=== PATIENT | female | born 1930 | race Caucasian/White ===

== ENCOUNTER 2018-07-23 15:51 | Inpatient (IN) | payer MEDICARE, OTHER ==
[~2018-07-23] VITALS: Ht 157.5 cm; Wt 54.4 kg
--- NOTE | 2018-07-23 16:10 | NUR ---
.Patient arrived via ambulance from [facility].Patient appears obtunded,non verbally responsive.Per ambulance report :this is patient base line.Respiration unlabored.O2 at 15l via non reabreather mask.Saturation 92%.SR on monitor.Waiting to be seen by .
[2018-07-23] MEDS ORDERED: IV NORMAL SALINE 1000 ML BAG IV ONE (16:15)
[2018-07-23] MEDS ORDERED: ACET-2154 PO (16:33)
[2018-07-23] MEDS ORDERED: DOCU100C36 PO (16:33)
[2018-07-23] MEDS ORDERED: TYLENOL PR (16:33)
[2018-07-23] MEDS ORDERED: MELA3TAB PO (16:33)
[2018-07-23] MEDS ORDERED: BISA10SU61 RC (16:33)
[2018-07-23] MEDS ORDERED: FURO-152 PO (16:33)
[2018-07-23] MEDS ORDERED: ASPI81TA31 PO (16:33)
[2018-07-23] MEDS ORDERED: LOSA100T15 PO (16:33)
[2018-07-23] MEDS ORDERED: MAGN400O6 PO (16:33)
[2018-07-23] MEDS ORDERED: LEVE500T20 PO (16:33)
[2018-07-23] MEDS ORDERED: CLON0.1T PO (16:33)
[2018-07-23] MEDS ORDERED: DICLOFENAC SODIUM 1% TOP (16:33)
[2018-07-23] MEDS ORDERED: HYDR-3326 PO (16:33)
[2018-07-23] MEDS ORDERED: ATROPINE SULFATE 1% SL (16:33)
[2018-07-23] MEDS ORDERED: OMEP20CA10 PO (16:33)
[2018-07-23 17:03] LABS: BASOPHILS # (AUTO) 0.1 K/uL (0.0-8.0); BASOPHILS % (AUTO) 0.3 % (0.0-2.0); EOSINOPHILS % (AUTO) 0.1 % (0.0-7.0); HEMATOCRIT 42.9 % (31.2-41.9); LYMPHOCYTES # (AUTO) 1.3 K/uL (20.0-40.0); LYMPHOCYTES % (AUTO) 4.1 % (20.5-51.5); MEAN CORPUSCULAR HEMOGLOBIN 30.3 uug (24.7-32.8); MEAN CORPUSCULAR HGB CONC 33 g/dL (32.3-35.6); MONOCYTES # (AUTO) 1.7 K/uL (2.0-10.0); MONOCYTES % (AUTO) 5.5 % (0.0-11.0); NEUTROPHILS # (AUTO) 28.5 K/uL (1.8-8.9); PLATELET COUNT (AUTO) 624 K/uL (179-408); RED BLOOD CELL COUNT(AUTO) 4.62 MIL/uL (3.63-4.92)
[2018-07-23 17:10] LABS: WHITE BLOOD COUNT (AUTO) 31.6 K/uL (3.8-11.8)
[2018-07-23 17:27] LABS: ALANINE AMINOTRANSFERASE 19 U/L (14-59); ALKALINE PHOSPHATASE 155 U/L (50-136); ASPARTATE AMINOTRANSFERASE 31 U/L (15-37); BILIRUBIN,DIRECT 0.2 mg/dL (0.0-0.2); BILIRUBIN,TOTAL 0.5 mg/dL (0.2-1.0); CARBON DIOXIDE 28 mmol/L (21-32); CHLORIDE 115 mmol/L (98-107); CREATININE 1.9 mg/dL (0.6-1.3); GLUCOSE 121 mg/dL (74-106); POTASSIUM 2.9 mmol/L (3.5-5.1); TOTAL PROTEIN, SERUM 7.8 g/dL (6.4-8.2); UREA NITROGEN, BLOOD 53 mg/dL (7-18)
[2018-07-23 17:45] LABS: BAND % (MANUAL) 3 % (0-10); LYMPHOCYTES % (MANUAL) 5 % (20-40); MONOCYTES % (MANUAL) 7 % (2-10); NEUTROPHILS % (MANUAL) 85 % (42-75)
[2018-07-23] MEDS ORDERED: FUROSEMIDE 40 MG/4 ML VIAL ONE (17:45)
[2018-07-23] MEDS ORDERED: VANCOMYCIN IV 1,000 MG in IV DEXTROSE 5% 250 ML IV ONE (17:45)
[2018-07-23] MEDS ORDERED: FUROSEMIDE 20 MG/2 ML VIAL IV ONE (17:45)
[2018-07-23] MEDS ORDERED: MORPHINE SULFATE 2 MG/1 ML DISP.SYRIN IV ONE (17:45)
[2018-07-23] MEDS ORDERED: VANCOMYCIN IV 200 ML ONE (17:46)
[2018-07-23] MEDS ORDERED: MORPHINE SULFATE 2 MG/1 ML DISP.SYRIN ONE (18:07)
[2018-07-23 18:11] LABS: *BILIRUBIN,URIN 2+ (NEGATIVE); *BLOOD, URINE NEGATIVE (NEGATIVE); *CLARITY,URINE SLIGHTLY CLOUDY (CLEAR); *KETONES,URINE TRACE (NEGATIVE); *PROTEIN,URINE NEGATIVE (NEGATIVE); *UROBILINOGEN,URINE 0.2 E.U./dl (NORMAL); LEUKOCYTE ESTERASE ,URINE 1+ (NEGATIVE); NITRITE, URINE NEGATIVE (NEGATIVE); UGLUCOSE NEGATIVE (NEGATIVE)
[2018-07-23 18:21] LABS: *COLOR,URINE DARK YELLOW (YELLOW)
[2018-07-23 18:22] LABS: BACTERIA,URINE MANY /HPF (NONE SEEN); SQUAMOUS EPITHELIAL CELL,UR MODERATE /HPF (NONE SEEN)
[2018-07-23 18:23] LABS: MUCUS,URINE MODERATE /LPF (0-FEW)
--- NOTE | 2018-07-23 18:25 | NUR ---
Report given to TARIQ Fink.
[2018-07-23 18:59] VITALS: BP 163/67
[2018-07-23] MEDS ORDERED: MAGNESIUM HYDROXIDE 30 ML LIQUID UDC PO PRN (19:15)
[2018-07-23] MEDS ORDERED: ONDANSETRON 4 MG/2 ML VIAL IV PRN (19:15)
[2018-07-23] MEDS ORDERED: ZOLPIDEM 5 MG TABLET PO PRN (19:15)
[2018-07-23] MEDS ORDERED: HYDROCODONE/APAP 5-325MG TABLET PO PRN (19:15)
[2018-07-23] MEDS ORDERED: ACETAMINOPHEN 325 MG TABLET PO PRN (19:15)
[2018-07-23] MEDS ORDERED: Z GUARD REMEDY PASTE 57 GM TUBE TOP PRN (19:15)
--- NOTE | 2018-07-23 19:33 | NUR ---
PATIENT ARRIVED INTO UNIT AT 640 PM. VERY UNSTABLE. PATIENT IS DNR/DNI. ELECTROLYTES ABNORMAL. PRESENTS WITH RIGHT SHOULDER DISLOCATION, WELL WHAT LOOKS LIKE RIGHT HIP DISLOCATION. RIGHT HIP LOOKING A LIKE SHORTER THAN RIGHT. ON SIMPLE MASK 8L SATURATING AT 96%. VITAL SIGNS UNSTABLE. LOW GRADE FEVER. COCCYX WOUND. LOOKS LIKE OLD SCAR, OR A SKIN GRAFT. REPORT GIVEN TO FACILITY TECHNICIAN NURSE.
[2018-07-23 19:53] LABS: MAGNESIUM 2.2 mg/dL (1.8-2.4); PHOSPHOROUS 3.7 mg/dL (2.5-4.9)
[2018-07-23] MEDS ORDERED: ASPIRIN 300 MG RECTAL SUPP RC ONE (20:00)
--- NOTE | 2018-07-23 20:00 | NUR ---
PATIENT AWAKE IN BED, NON VERBAL BUT RESPONSIVE TO VERBAL AND TACTILE STIMULI. NO FACIAL GRIMACING OR SIGNS OF DISTRESS AT THIS TIME. PATIENT ON TELE WITH SR AT 84. SAFETY MEASURES IN PLACE, WILL CONTINUE TO MONITOR PATIENT
[2018-07-23] MEDS ORDERED: DEXTROSE 50% 50 ML DISP.SYRIN IV PRN (20:15)
[2018-07-23] MEDS ORDERED: INSULIN REGULAR, HUMAN 300 UNITS/3 ML VIAL SQ PRN (20:15)
[2018-07-23] MEDS ORDERED: INSULIN REGULAR, HUMAN 300 UNIT/3 ML VIAL SQ PRN (20:15)
--- NOTE | 2018-07-23 20:17 | NUR ---
CLINICAL PHARMACY NOTE:VANCOMYCIN DOSING Request for vancomycin dosing on 87 y/o female 5'2" 120lbs empiric therapy(leukocytos Temp 99.2 BUN 53 SCr 1.9 WBC 31.6 Bands 3 also on Azactam Received vancomycin 1gm in ER. Ordered random vancomycin level for tomorrow. Will dose by fall off levels due to poor renal function
[2018-07-23 20:18] VITALS: BP 115/77
[2018-07-23] MEDS ORDERED: DICLOFENAC SODIUM TOP SCH (21:15)
[2018-07-23 21:20] LABS: ABG BASE EXCESS 4.3 mmol/L; ABG HCO3 30.8 mmol/L; ABG PCO2 53.8 mmHg (35.0-45.0); ABG PH 7.375 (7.350-7.450); ABG PO2 48.7 mmHg (75.0-100.0); ABG SITE LEFT BRACHIAL; ABG TOTAL HEMOGLOBIN 13.7 G/dL (12.0-16.0); MetHb 0.3 % (0.0-1.5); O2Hb 83.3 % (94.0-97.0)
[2018-07-23] MEDS: LEVETIRACETAM IV 500 MG in IV DEXTROSE 5% 100 ML IV SCH (21:40)
[2018-07-23] MEDS: HEPARIN SODIUM,PORCINE 5,000 UNITS/ML VIAL SQ SCH (21:42)
[2018-07-23] MEDS: BLOOD SUGAR DIAGNOSTIC 1 EACH STRIP VI SCH (21:52)
[2018-07-23] MEDS ORDERED: AZTREONAM 2 G in IV NORMAL SALINE 100 ML IV SCH (22:00)
[2018-07-23] MEDS: AZTREONAM 1 G in IV NORMAL SALINE 50 ML IV SCH (22:11)
[2018-07-23] MEDS: POTASSIUM CHLORIDE 50 ML IV SCH ×2 (22:45→23:47)
[2018-07-24] MEDS: MORPHINE SULFATE 2 MG/1 ML DISP.SYRIN IV PRN ×2 (00:11→05:08)
[2018-07-24 00:42] VITALS: BP 157/81
[2018-07-24] MEDS: POTASSIUM CHLORIDE 50 ML IV SCH ×2 (00:51→01:52)
[2018-07-24 04:00] VITALS: BP 139/78
[2018-07-24] MEDS: AZTREONAM 1 G in IV NORMAL SALINE 50 ML IV SCH ×3 (05:07→22:42)
[2018-07-24 05:17] LABS: BASOPHILS % (AUTO) 0.1 % (0.0-2.0); HEMATOCRIT 37.7 % (31.2-41.9); HEMOGLOBIN 12.8 g/dL (10.9-14.3); LYMPHOCYTES % (AUTO) 3.4 % (20.5-51.5); MEAN CORPUSCULAR HGB CONC 34 g/dL (32.3-35.6); MEAN CORPUSCULAR VOLUME 91.3 fL (75.5-95.3); MONOCYTES # (AUTO) 1.6 K/uL (2.0-10.0); MONOCYTES % (AUTO) 5.4 % (0.0-11.0); NEUTROPHILS # (AUTO) 26.5 K/uL (1.8-8.9); NEUTROPHILS % (AUTO) 91.1 % (38.5-71.5); PLATELET COUNT (AUTO) 552 K/uL (179-408); RED BLOOD CELL COUNT(AUTO) 4.13 MIL/uL (3.63-4.92); WHITE BLOOD COUNT (AUTO) 29.1 K/uL (3.8-11.8)
[2018-07-24 05:21] LABS: CARBON DIOXIDE 30 mmol/L (21-32); CHLORIDE 116 mmol/L (98-107); CHOLESTEROL 95 mg/dL (<200); CREATININE 2.1 mg/dL (0.6-1.3); GLUCOSE 125 mg/dL (74-106); HDL CHOLESTEROL 40 mg/dL (40-60); PHOSPHOROUS 3.6 mg/dL (2.5-4.9); POTASSIUM 3.9 mmol/L (3.5-5.1); TRIGLYCERIDES 104 MG/DL (30-150); UREA NITROGEN, BLOOD 61 mg/dL (7-18)
[2018-07-24 06:15] LABS: THYROID STIMULATING HORMONE 0.088 mIU/mL (0.358-3.740)
--- NOTE | 2018-07-24 06:23 | NUR ---
PATIENT IS ASLEEP, WEAK AND LETHARGIC. NO S/S OF PAIN OR ACUTE DISTRESS AT THIS TIME. PAIN MEDS GIVEN ORDERED. CONTINUES TO BE SR ON TELE. SAFETY AND COMFORT MEASURES MAINTAINED AT ALL TIMES.
[2018-07-24] MEDS: BLOOD SUGAR DIAGNOSTIC 1 EACH STRIP VI SCH ×4 (06:32→21:15)
--- NOTE | 2018-07-24 08:00 | NUR ---
PATIENT NOTED LESS SOB, ON 100% NON RE-BREATHING MASK SATURATING 99%. AM LABS CALLED TO ADRIENNE GUARDADO WITH ORDERS.
[2018-07-24] MEDS: PANTOPRAZOLE SODIUM 40 MG VIAL IV SCH (08:39)
[2018-07-24] MEDS: HEPARIN SODIUM,PORCINE 5,000 UNITS/ML VIAL SQ SCH ×2 (08:41→21:07)
[2018-07-24] MEDS: LEVETIRACETAM IV 500 MG in IV DEXTROSE 5% 100 ML IV SCH ×2 (08:42→21:06)
[2018-07-24] MEDS ORDERED: IV D5W 1000ML 1,000 ML IV PRN (09:15)
[2018-07-24] MEDS ORDERED: MINERAL OIL FLEET ENEMA 133 ML BOTTLE RC ONE (09:15)
[2018-07-24] MEDS ORDERED: IV D5 1/2 NS 1000 ML 1,000 ML IV ONE (11:00)
--- NOTE | 2018-07-24 11:00 | NUR ---
DR HERNANDEZ AND DR SALDAÑA CAME FOR CONSULT SEE NOTES. STARTED ON D5 1/2 NS AT 75 MLS/HR. PATIENT IS HEAVILY IMPACTED PER CT ABDOMEN RESULTS MINERAL OIL ENEMA AND DULCOLAX SUPP ADMINISTERED
[2018-07-24 11:30] VITALS: BP 122/68
[2018-07-24] MEDS: ACETAMINOPHEN 650 MG SUPP.RECT RC PRN ×2 (11:45→21:06)
[2018-07-24] MEDS: BISACODYL 10 MG SUPP.RECT RC PRN (11:45)
--- NOTE | 2018-07-24 11:53 | NUR ---
CLINICAL PHARMACY NOTE:VANCOMYCIN DOSING To continue vancomycin dosing on 87 y/o female 5'2" 120lbs empiric therapy(leukocytos Temp 98.4 BUN 61 SCr 2.1 (ARF) WBC 29.1 also on Azactam random: pending today at 1500 Received vancomycin 1gm in ER 07/23 1745. Next random pending today at 1500. Will check level at that time and re-dose as needed. Will follow Addendum: 07/24/18 at 1719 by JOSÉ MIGUEL GARCIA ADM RANDOM LEVEL AT 1550 10.8, DOSED ANOTEHR 1GM DUE FOR 1800. WILL CHECK SCR IN AM AND RE-ORDER NEXT RANDOM BASED ON RENAL FXN. WILL FOLLOW
--- NOTE | 2018-07-24 12:12 | NUR ---
DR PORRAS CALLED BACKED AND MADE AWARE OF 3-5 MINS 2X EPISODES OF SVT NO NEW ORDERS BT WILL FOLLOW-UP PATIENT. CONTINUE WITH [facility] OBSERVATION. 15% O2 ON NON-REBREATHING MASK MAINTAINED SATURATING 97%
--- NOTE | 2018-07-24 16:00 | NUR ---
DR PORRAS IN AND EXAMINED PATIENT SEE NOTES
[2018-07-24 16:06] VITALS: BP 127/70
[2018-07-24] MEDS ORDERED: VANCOMYCIN IV 1 G in PREMIXED 0 EACH IV ONE (18:00)
[2018-07-24 20:00] VITALS: BP 142/63
[2018-07-25] VITALS: BP 121/56
--- NOTE | 2018-07-25 00:01 | NUR ---
Digitally disimpacted / moderate amount brown formed stool.
[2018-07-25 04:00] VITALS: BP 114/56
[2018-07-25] MEDS: MORPHINE SULFATE 2 MG/1 ML DISP.SYRIN IV PRN ×2 (05:03→13:21)
[2018-07-25] MEDS: AZTREONAM 1 G in IV NORMAL SALINE 50 ML IV SCH ×3 (05:05→22:00)
[2018-07-25 06:23] LABS: BASOPHILS % (AUTO) 0.2 % (0.0-2.0); EOSINOPHILS # (AUTO) 0.3 K/uL (0.0-0.7); EOSINOPHILS % (AUTO) 1.1 % (0.0-7.0); HEMATOCRIT 36.3 % (31.2-41.9); HEMOGLOBIN 12.4 g/dL (10.9-14.3); MEAN CORPUSCULAR HGB CONC 34 g/dL (32.3-35.6); MEAN CORPUSCULAR VOLUME 91.1 fL (75.5-95.3); MONOCYTES % (AUTO) 4.2 % (0.0-11.0); NEUTROPHILS # (AUTO) 22.4 K/uL (1.8-8.9); NEUTROPHILS % (AUTO) 90.5 % (38.5-71.5); PLATELET COUNT (AUTO) 499 K/uL (179-408); RED BLOOD CELL COUNT(AUTO) 3.99 MIL/uL (3.63-4.92); WHITE BLOOD COUNT (AUTO) 24.7 K/uL (3.8-11.8)
[2018-07-25 06:58] LABS: BAND % (MANUAL) 4 % (0-10); LYMPHOCYTES % (MANUAL) 5 % (20-40); NEUTROPHILS % (MANUAL) 87 % (42-75)
[2018-07-25 07:00] LABS: MONOCYTES % (MANUAL) 4 % (2-10)
[2018-07-25 07:03] LABS: CARBON DIOXIDE 28 mmol/L (21-32); CHLORIDE 116 mmol/L (98-107); CREATININE 2.2 mg/dL (0.6-1.3); GLUCOSE 107 mg/dL (74-106); PHOSPHOROUS 3.1 mg/dL (2.5-4.9); POTASSIUM 3.5 mmol/L (3.5-5.1); UREA NITROGEN, BLOOD 68 mg/dL (7-18)
[2018-07-25] MEDS: BLOOD SUGAR DIAGNOSTIC 1 EACH STRIP VI SCH ×4 (07:31→20:51)
[2018-07-25 07:51] VITALS: BP 140/66
--- NOTE | 2018-07-25 08:00 | NUR ---
pt obtunded and only responds to tactile stimuli. Pt's on continous pulse ox sat @ 97% on Non rebreather mask. SNR @70's on tele. F/c draining dark yellow urine. Pt diminished breath sounds on lower lobes. Sacrum redness noted. Notified ROOF FIXER re: to elevate right arm and be mind full the right humerus dislocation. Pt agreeable with plan of care. Call light is within reach. Addendum: 07/25/18 at 1528 by TOMASZ CRYSTAL RN ROOF FIXER agreeable with plan.
[2018-07-25] MEDS: PANTOPRAZOLE SODIUM 40 MG VIAL IV SCH (08:27)
[2018-07-25] MEDS: ASPIRIN 300 MG RECTAL SUPP RC SCH (08:27)
[2018-07-25] MEDS: LEVETIRACETAM IV 500 MG in IV DEXTROSE 5% 100 ML IV SCH ×2 (08:27→20:40)
[2018-07-25] MEDS: HEPARIN SODIUM,PORCINE 5,000 UNITS/ML VIAL SQ SCH ×2 (08:30→20:43)
--- NOTE | 2018-07-25 09:18 | NUR ---
CLINICAL PHARMACY NOTE:VANCOMYCIN DOSING S: To continue vancomycin dosing on 87 y/o female for empiric therapy(leukocytosis, Sepsis) O: Temp 98.4 BUN 68 SCr 2.2 (ARF) WBC 24.7 also on Azactam random: pending today at 1700 ht 157.4 cm wt 54.4 kg Plan Received vancomycin 1gm IVPB on 07/24 at 1840. Next random pending today at 1700. Will check level at that time and re-dose as needed. Will follow Addendum: 07/25/18 at 1831 by BRANDYN RAUSCH RANDOM VANCOMYCIN LEVEL 20.3. NO VANCOMYCIN TODAY. REPEAT RANDOM LEVEL IN AM
--- NOTE | 2018-07-25 10:00 | NUR ---
Attempted to taper o2 usage of NRB mask to a simple mask @ 8 liters. Pt desaturated after 15-20 mins to 82% o2 sat. Put pt back on non rebreather as pt cannot tolerate simple mask.
[2018-07-25 11:14] VITALS: BP 137/57
--- NOTE | 2018-07-25 13:10 | NUR ---
Pt had run of atrial flutter with HR of 145 for 6mins. b/p 124/78 resp 20. 02 sat 96% on NRB mask. Pt went back to SNR after 6 mins of run. Pt is in pain - pt moaning and groaning. Used Flacc system for pain level of 7/10. Morphine Given.
[2018-07-25 15:08] VITALS: BP 141/53
[2018-07-25 15:42] LABS: *BILIRUBIN,URIN NEGATIVE (NEGATIVE); *BLOOD, URINE 2+ (NEGATIVE); *CLARITY,URINE SLIGHTLY CLOUDY (CLEAR); *COLOR,URINE YELLOW (YELLOW); *KETONES,URINE NEGATIVE (NEGATIVE); *PROTEIN,URINE NEGATIVE (NEGATIVE); LEUKOCYTE ESTERASE ,URINE 2+ (NEGATIVE); NITRITE, URINE NEGATIVE (NEGATIVE); UGLUCOSE NEGATIVE (NEGATIVE)
[2018-07-25 15:50] LABS: *CREATININE,URINE 84.6 mg/dL (30-125); *URINE TOTAL PROTEIN RANDOM 62.4 mg/dL (<150/24HR)
[2018-07-25 15:55] LABS: BACTERIA,URINE MODERATE /HPF (NONE SEEN); SQUAMOUS EPITHELIAL CELL,UR FEW /HPF (NONE SEEN)
--- NOTE | 2018-07-25 16:10 | NUR ---
Received report from [place] [facility].
[2018-07-25 20:00] VITALS: BP 104/59
--- NOTE | 2018-07-25 20:00 | NUR ---
RECEIVED PT VERBALLY NONRESPONSIVE, OPENS HER EYES TO NOXIOUS STIMULI. IVF ON R WRIST TKO RATE FOR IVPB MEDS. ON O2 OF100% NRM W/ O2 SAT OF 98%.PT. HAS A 7 MINS RUN OF SVT HR-140-156, HEATHER CHAKRABORTY CALLED & WAS UPDATED NO ORDER GIVEN. BP STABLE. REPOSITIONED W/ HOB ELEVATED.
[2018-07-25] MEDS ORDERED: IV NORMAL SALINE 250 ML IV PRN (20:45)
--- NOTE | 2018-07-25 23:00 | NUR ---
HS CARE DONE. ORAL CARE DONE. REPOSITIONED W/ HOB ELEVATED.
[2018-07-26] VITALS: BP 110/62
[2018-07-26 04:00] VITALS: BP 118/82
--- NOTE | 2018-07-26 04:30 | NUR ---
AM CARE DONE. REPOSITIONED W/ HOB ELEVATED. V/S STABLE. URINE OUTPUT IS LOW, MD AWARE.
[2018-07-26] MEDS: AZTREONAM 1 G in IV NORMAL SALINE 50 ML IV SCH ×3 (05:25→21:33)
[2018-07-26 06:24] LABS: CARBON DIOXIDE 28 mmol/L (21-32); CHLORIDE 116 mmol/L (98-107); CREATININE 2.1 mg/dL (0.6-1.3); GLUCOSE 86 mg/dL (74-106); PHOSPHOROUS 3.7 mg/dL (2.5-4.9); POTASSIUM 3.5 mmol/L (3.5-5.1); UREA NITROGEN, BLOOD 74 mg/dL (7-18)
[2018-07-26] MEDS: BLOOD SUGAR DIAGNOSTIC 1 EACH STRIP VI SCH (06:35)
[2018-07-26 06:41] LABS: BASOPHILS # (AUTO) 0.1 K/uL (0.0-8.0); BASOPHILS % (AUTO) 0.3 % (0.0-2.0); EOSINOPHILS # (AUTO) 0.3 K/uL (0.0-0.7); EOSINOPHILS % (AUTO) 1.5 % (0.0-7.0); HEMATOCRIT 36.6 % (31.2-41.9); HEMOGLOBIN 12.2 g/dL (10.9-14.3); LYMPHOCYTES # (AUTO) 0.8 K/uL (20.0-40.0); LYMPHOCYTES % (AUTO) 3.9 % (20.5-51.5); MEAN CORPUSCULAR HEMOGLOBIN 30.8 uug (24.7-32.8); MEAN CORPUSCULAR HGB CONC 33 g/dL (32.3-35.6); MEAN CORPUSCULAR VOLUME 92.3 fL (75.5-95.3); MONOCYTES % (AUTO) 5.1 % (0.0-11.0); NEUTROPHILS % (AUTO) 89.2 % (38.5-71.5); PLATELET COUNT (AUTO) 492 K/uL (179-408); RED BLOOD CELL COUNT(AUTO) 3.96 MIL/uL (3.63-4.92); WHITE BLOOD COUNT (AUTO) 20.2 K/uL (3.8-11.8)
--- NOTE | 2018-07-26 07:30 | NUR ---
report received from Laurence POTTER, 87 yr old female was admitted to [facility] for hypoxemia and NSTEMI. patient is nonverbal but moans and groans to pain especially when being repositioned. library monitor shows sinus rhythm, saline lock #22 intact, dressing changed and retaped. small amount of leak on the IV site and catheter is bent, retaped as well. bernstein catheter intact, urine scanty. right shoulder fx noted. right arm kept elevated on a pillow. repositioned to side. sacral wound noted. healing, mepilex dressing intac Addendum: 07/26/18 at 0856 by RUSS CANTU RN Amended: Links added.
[2018-07-26] MEDS: MORPHINE SULFATE 2 MG/1 ML DISP.SYRIN IV PRN ×3 (07:33→17:49)
[2018-07-26 07:37] VITALS: BP 147/72
[2018-07-26] MEDS: LEVETIRACETAM IV 500 MG in IV DEXTROSE 5% 100 ML IV SCH ×2 (08:44→21:46)
[2018-07-26] MEDS: PANTOPRAZOLE SODIUM 40 MG VIAL IV SCH (08:44)
[2018-07-26] MEDS: HEPARIN SODIUM,PORCINE 5,000 UNITS/ML VIAL SQ SCH ×2 (08:45→21:34)
[2018-07-26] MEDS: ASPIRIN 300 MG RECTAL SUPP RC SCH (08:45)
[2018-07-26] MEDS ORDERED: VANCOMYCIN IV 1 G in PREMIXED 0 EACH IV ONE (10:00)
[2018-07-26] MEDS: IV D5W 1000ML 1,000 ML IV SCH (11:34)
[2018-07-26 12:08] VITALS: BP 152/60
--- NOTE | 2018-07-26 12:42 | NUR ---
CLINICAL PHARMACY NOTE:VANCOMYCIN DOSING S: To continue vancomycin dosing on 87 y/o female for empiric therapy(leukocytosis, Sepsis) O: Temp 98 BUN 74 SCr 2.1 (ARF) WBC 20.2 also on Azactam Vancomycin random today at 0600:18.5 ht 157.4 cm wt 54.4 kg Plan Since Vancomycin random is under 20, Vancomycin 1gram x1 was given today at 1009. Will continue to dose by fall-off random level due to decreased renal function(ordered for 07/28/18 at 0600). Will follow the level for further dosing.
--- NOTE | 2018-07-26 12:44 | NUR ---
WOUND CARE CONSULT: PT PRESENTS WITH SACRAL SCARRING, PRESENT ON ADMISSION. RECOMMENDATIONS MADE FOR SKIN PROTECTION AND DISCUSSED WITH NURSING STAFF. PT ON FIRST STEP CIRRUS LOW AIRLOSS MATTRESS. ALL SKIN PROTECTION MEASURES IN PLACE. WILL SEE PRN. MD IN AGREEMENT WITH PLAN OF CARE. WILL SEE PRN. MD IN AGREEMENT WITH PLAN OF CARE.
--- NOTE | 2018-07-26 13:08 | NUR ---
nonrebreather mask dc/d. o2 mask at 10 liters applied instead pulse oximeter at the bedside. Addendum: 07/26/18 at 1308 by RUSS CANTU RN Amended: Links added.
--- NOTE | 2018-07-26 14:28 | NUR ---
medicated for generalized pain..unable to scale Addendum: 07/26/18 at 1429 by RUSS CANTU RN Amended: Links added.
[2018-07-26 16:12] VITALS: BP 126/48
[2018-07-26] MEDS: ACETAMINOPHEN 650 MG SUPP.RECT RC PRN (16:18)
[2018-07-26] MEDS: ALBUTEROL SULFATE 2.5 MG/3 ML NEBU NEB PRN (16:30)
[2018-07-26] MEDS: IPRATROPIUM BROMIDE 0.5 MG/2.5 ML NEBU NEB PRN (16:30)
--- NOTE | 2018-07-26 17:53 | NUR ---
medicated for generalized discomfort. needed to be suctioned nasotracheally and obtained large amount of yellow thick secretions Addendum: 07/26/18 at 1753 by RUSS CANTU RN Amended: Links added.
--- NOTE | 2018-07-26 18:53 | NUR ---
Pt unable to tolerate V/Q scan per neurophysiological technician. V/Q scan not done. made aware
[2018-07-26 19:54] VITALS: BP 130/60
--- NOTE | 2018-07-26 22:33 | NUR ---
with cnas help turned and reposition patient in bed .offloaded back and elevated upper and lower extremities with pillow . hob up and no respiratory distress tolerating NRM saturation 96% rr 18
[2018-07-27 00:29] VITALS: BP 133/56
[2018-07-27 05:06] VITALS: BP 121/43
[2018-07-27] MEDS: AZTREONAM 1 G in IV NORMAL SALINE 50 ML IV SCH ×3 (05:18→21:16)
[2018-07-27] MEDS: ALBUTEROL SULFATE 2.5 MG/3 ML NEBU NEB PRN (05:23)
[2018-07-27] MEDS: IPRATROPIUM BROMIDE 0.5 MG/2.5 ML NEBU NEB PRN (05:23)
--- NOTE | 2018-07-27 05:58 | NUR ---
AM CARE DONE ,CHANGED SOILED LINENS AND GOWN SKIN CARE DONE . SACRAL WOUND CLEANSE WITH NORMAL SALINE PAT DRY APPLIED HYDROGEL AND COVER WITH MEPILEX , WOUND IS HEALING .ELEVATED UPPER AND LOWER EXTREMITIES HEELS OFFLOADED .
[2018-07-27 06:44] LABS: BASOPHILS # (AUTO) 0.1 K/uL (0.0-8.0); BASOPHILS % (AUTO) 0.4 % (0.0-2.0); EOSINOPHILS # (AUTO) 0.3 K/uL (0.0-0.7); EOSINOPHILS % (AUTO) 1.6 % (0.0-7.0); HEMATOCRIT 37.5 % (31.2-41.9); HEMOGLOBIN 12.5 g/dL (10.9-14.3); LYMPHOCYTES # (AUTO) 1.7 K/uL (20.0-40.0); LYMPHOCYTES % (AUTO) 10.6 % (20.5-51.5); MEAN CORPUSCULAR HEMOGLOBIN 30.8 uug (24.7-32.8); MEAN CORPUSCULAR HGB CONC 33 g/dL (32.3-35.6); MEAN CORPUSCULAR VOLUME 92.6 fL (75.5-95.3); MONOCYTES # (AUTO) 0.9 K/uL (2.0-10.0); MONOCYTES % (AUTO) 5.9 % (0.0-11.0); NEUTROPHILS # (AUTO) 12.7 K/uL (1.8-8.9); NEUTROPHILS % (AUTO) 81.5 % (38.5-71.5); PLATELET COUNT (AUTO) 501 K/uL (179-408); RED BLOOD CELL COUNT(AUTO) 4.05 MIL/uL (3.63-4.92); WHITE BLOOD COUNT (AUTO) 15.6 K/uL (3.8-11.8)
[2018-07-27 06:56] LABS: CARBON DIOXIDE 29 mmol/L (21-32); CHLORIDE 114 mmol/L (98-107); CREATININE 2.1 mg/dL (0.6-1.3); GLUCOSE 113 mg/dL (74-106); MAGNESIUM 2.1 mg/dL (1.8-2.4); PHOSPHOROUS 3.4 mg/dL (2.5-4.9); POTASSIUM 3.1 mmol/L (3.5-5.1); UREA NITROGEN, BLOOD 70 mg/dL (7-18)
--- NOTE | 2018-07-27 07:00 | NUR ---
endorsed patient in bed on simple face mask at 10 liters . tolerating oxygen saturation 94% rr 18.
[2018-07-27] MEDS: IV D5W 1000ML 1,000 ML IV SCH (07:22)
--- NOTE | 2018-07-27 07:30 | NUR ---
NO SS OF PAIN OR DISTRESS, ON SIMPLE MASK AT 10L SATURATING 95%. MOANS ON AT TIMES, SR ON MONITOR. NPO STILL WITH D5W AT 50 MLS/HR CONTINUE WITH IV ANTIBIOTICS ORDERED. CONTINUE WITH [facility] MONITORING
[2018-07-27 07:40] VITALS: BP 140/78
[2018-07-27] MEDS: ASPIRIN 300 MG RECTAL SUPP RC SCH (08:45)
[2018-07-27] MEDS: LEVETIRACETAM IV 500 MG in IV DEXTROSE 5% 100 ML IV SCH ×2 (08:45→20:19)
[2018-07-27] MEDS: PANTOPRAZOLE SODIUM 40 MG VIAL IV SCH (08:45)
[2018-07-27] MEDS: HEPARIN SODIUM,PORCINE 5,000 UNITS/ML VIAL SQ SCH ×2 (08:46→20:18)
--- NOTE | 2018-07-27 09:58 | NUR ---
CLINICAL PHARMACY NOTE:VANCOMYCIN DOSING S: To continue vancomycin dosing on 87 y/o female for empiric therapy(leukocytosis, Sepsis) O: Temp 98 BUN 70 SCr 2.1 (ARF) WBC 15.6 also on Azactam ht 157.4 cm wt 54.4 kg Plan No dose due today.Will continue to dose by fall-off random level due to decreased renal function(ordered for 07/28/18 at 0600). Will follow the level for further dosing. Will follow up
[2018-07-27] MEDS: POTASSIUM CHLORIDE 50 ML IV SCH ×2 (10:53→12:08)
[2018-07-27 11:40] VITALS: BP 128/76
--- NOTE | 2018-07-27 12:00 | NUR ---
SEEN BY DR SALDAÑA. SEE NOTES
--- NOTE | 2018-07-27 14:19 | NUR ---
RESTING COMFORTABLY WITH HOB UP 45 DEGREES WITH 10L O2 VIA SIMPLE MASK. CONTINUE WITH [facility] OBSERVATION
[2018-07-27 15:40] VITALS: BP 139/67
--- NOTE | 2018-07-27 17:17 | NUR ---
SEEN BY DR PORRAS SEE NOTES
[2018-07-27] MEDS: IV D5W 1000ML 1,000 ML IV PRN (18:13)
--- NOTE | 2018-07-27 19:47 | NUR ---
ROUNDS MADE PATIENT IN BED RESTING TOLERATING 02 AT SIMPLE FACE MASK AT 10 LITER /MIN . HOB UP . PATIENT DOESN'T FOLLOW COMMANDS CONFUSED .NPO ON IVF D5W AT 75 ML/HR .
[2018-07-27 20:07] VITALS: BP 140/52
[2018-07-28 00:32] VITALS: BP 130/75
[2018-07-28 04:37] VITALS: BP 171/81
[2018-07-28] MEDS: AZTREONAM 1 G in IV NORMAL SALINE 50 ML IV SCH ×3 (05:17→21:01)
--- NOTE | 2018-07-28 05:44 | NUR ---
AM CARE DONE .SACRAL HEALING WOUND CLEANSE WITH NORMAL SALINE PAT DRY APPLIED HYDROGEL COVER WITH MEPILEX,CHANGED SOILED LINENS AND GOWN . ELEVATED UPPER AND LOWER EXTREMITIES WITH PILLOWS .TOLERATING SIMPLE FACE MASK AT 10 L /MIN SATURATING OK 96%.
[2018-07-28 07:18] VITALS: BP 156/83
[2018-07-28 07:19] LABS: BASOPHILS # (AUTO) 0.1 K/uL (0.0-8.0); BASOPHILS % (AUTO) 0.4 % (0.0-2.0); EOSINOPHILS # (AUTO) 0.4 K/uL (0.0-0.7); EOSINOPHILS % (AUTO) 2.9 % (0.0-7.0); HEMATOCRIT 39.8 % (31.2-41.9); LYMPHOCYTES # (AUTO) 0.7 K/uL (20.0-40.0); LYMPHOCYTES % (AUTO) 5.8 % (20.5-51.5); MEAN CORPUSCULAR HEMOGLOBIN 30.3 uug (24.7-32.8); MEAN CORPUSCULAR HGB CONC 33 g/dL (32.3-35.6); MEAN CORPUSCULAR VOLUME 92.8 fL (75.5-95.3); MONOCYTES % (AUTO) 8.1 % (0.0-11.0); NEUTROPHILS # (AUTO) 10.3 K/uL (1.8-8.9); NEUTROPHILS % (AUTO) 82.8 % (38.5-71.5); PLATELET COUNT (AUTO) 430 K/uL (179-408); RED BLOOD CELL COUNT(AUTO) 4.29 MIL/uL (3.63-4.92); WHITE BLOOD COUNT (AUTO) 12.4 K/uL (3.8-11.8)
[2018-07-28 07:35] LABS: CARBON DIOXIDE 26 mmol/L (21-32); CHLORIDE 114 mmol/L (98-107); CREATININE 1.8 mg/dL (0.6-1.3); GLUCOSE 105 mg/dL (74-106); MAGNESIUM 1.9 mg/dL (1.8-2.4); PHOSPHOROUS 2.9 mg/dL (2.5-4.9); POTASSIUM 3.5 mmol/L (3.5-5.1); UREA NITROGEN, BLOOD 62 mg/dL (7-18); VANCOMYCIN,RANDOM 21.2 ug/mL (18.0-26.0)
[2018-07-28] MEDS: PANTOPRAZOLE SODIUM 40 MG VIAL IV SCH (08:44)
[2018-07-28] MEDS: LEVETIRACETAM IV 500 MG in IV DEXTROSE 5% 100 ML IV SCH ×2 (08:44→21:01)
[2018-07-28] MEDS: ASPIRIN 300 MG RECTAL SUPP RC SCH (08:48)
[2018-07-28] MEDS: HEPARIN SODIUM,PORCINE 5,000 UNITS/ML VIAL SQ SCH ×2 (08:49→21:03)
[2018-07-28 11:34] VITALS: BP 156/47
[2018-07-28] MEDS: IV D5W 1000ML 1,000 ML IV PRN (12:27)
--- NOTE | 2018-07-28 14:00 | NUR ---
Oral care done
[2018-07-28] MEDS: ACETAMINOPHEN 650 MG SUPP.RECT RC PRN (14:03)
--- NOTE | 2018-07-28 14:39 | NUR ---
Pt was suctioned NT by RT
--- NOTE | 2018-07-28 14:40 | NUR ---
PT SUCTIONED NASALLY VIA RIGHT NARE. SUCTIONED A LARGE AMOUNT OF THICK YELLOW BLOOD TINGED SECRETIONS. PT IS ON A VENTURI MASK 40% FIO2, MILD DISTRESS NOTED.
--- NOTE | 2018-07-28 14:59 | NUR ---
CLINICAL PHARMACY NOTE:VANCOMYCIN DOSING S: To continue vancomycin dosing on 87 y/o female for Sepsis. O: Temp 97.8 BUN 62 SCr 1.8 WBC 12.4 also on Azactam ht 157.4 cm wt 54.4 kg Vancomycin random today at 0600:21.2 Plan No dose due today.Will continue to dose by fall-off random level due to decreased renal function. Will follow the level for further dosing(ordered for tomorrow at 0600). Will follow up
[2018-07-28 15:30] VITALS: BP 135/80
[2018-07-28] MEDS: MORPHINE SULFATE 2 MG/1 ML DISP.SYRIN IV PRN ×2 (15:50→22:40)
--- NOTE | 2018-07-28 16:39 | NUR ---
VERBAL ORDER FOR MIDLINE PER DIRECTOR OF CAPITAL GIVING CYNTHIA. PT IS NOTED TO BE A HARD STICK, BILATERAL UPPER ARMS ARE EDEMATOUS, PERIPHERAL IV LINE ATTEMPTS TIMES 2
--- NOTE | 2018-07-28 17:30 | NUR ---
INFORMED BY ROSIBEL (STRIP POLISHER) THAT THE PATIENT WAS SUSTAINING HEART RATE AT 130' S. PT WAS REPOSITIONED, RECTAL TEMP AT 99.4. RT WAS CALLED FOR DEEP SUCTION AND COLLECTION OF SPUTUM. CYNTHIA INNER LAYER SCRUBBER TENDER AWARE OF NOTED ORAL BLOOD STAIN MUCUS. MIDLINE NURSE IN THE ROOM FOR MIDLINE INSERTION
--- NOTE | 2018-07-28 17:40 | NUR ---
PT DEEP SUCTIONED NASALLY VIA RIGHT NARE, SPUTUM SAMPLE COLLECTED. RN IS AWARE. SAMPLE TAKEN TO LAB.
--- NOTE | 2018-07-28 18:04 | NUR ---
MIDLINE INSERTION DONE BY MIDLINE NURSE
[2018-07-28 20:01] VITALS: BP 138/50
[2018-07-29 00:52] VITALS: BP 126/56
[2018-07-29] MEDS: MORPHINE SULFATE 2 MG/1 ML DISP.SYRIN IV PRN (01:14)
[2018-07-29 05:07] VITALS: BP 140/60
--- NOTE | 2018-07-29 06:00 | NUR ---
had uneventful night, medicated for pain with good results.vss. hr came down after morphine given.
[2018-07-29] MEDS: AZTREONAM 1 G in IV NORMAL SALINE 50 ML IV SCH ×2 (06:07→14:06)
[2018-07-29 07:23] LABS: BASOPHILS # (AUTO) 0.1 K/uL (0.0-8.0); BASOPHILS % (AUTO) 0.9 % (0.0-2.0); EOSINOPHILS # (AUTO) 0.5 K/uL (0.0-0.7); HEMATOCRIT 35.6 % (31.2-41.9); HEMOGLOBIN 11.7 g/dL (10.9-14.3); LYMPHOCYTES % (AUTO) 8.4 % (20.5-51.5); MEAN CORPUSCULAR HEMOGLOBIN 30.1 uug (24.7-32.8); MEAN CORPUSCULAR HGB CONC 33 g/dL (32.3-35.6); MEAN CORPUSCULAR VOLUME 91.6 fL (75.5-95.3); MONOCYTES # (AUTO) 1.1 K/uL (2.0-10.0); MONOCYTES % (AUTO) 8.4 % (0.0-11.0); NEUTROPHILS # (AUTO) 9.7 K/uL (1.8-8.9); NEUTROPHILS % (AUTO) 78.3 % (38.5-71.5); PLATELET COUNT (AUTO) 496 K/uL (179-408); RED BLOOD CELL COUNT(AUTO) 3.89 MIL/uL (3.63-4.92); WHITE BLOOD COUNT (AUTO) 12.4 K/uL (3.8-11.8)
--- NOTE | 2018-07-29 07:30 | NUR ---
RECEIVED PATIENT WITH NO SOB, COMPLAINTS OR PAIN OR DISCOMFORT. URINARY CATHETER AND MIDLINE IN LEFT UPPER ARM WAS NOTED. PATIENTS VITAL SIGNS ARE WITHIN NORMAL UNITS. BED WAS PLACED IN THE LOWEST POSITION AND ON AIR MATTRESS. PATIENT IS IN STABLE CONDITION AND WILL CONTINUE TO MONITOR. WILL FOLLOW UP WITH DISCHARGE ORDERS FROM [facility] AND NON PROFIT DIRECTOR.
[2018-07-29 07:40] LABS: CARBON DIOXIDE 29 mmol/L (21-32); CHLORIDE 111 mmol/L (98-107); CREATININE 1.6 mg/dL (0.6-1.3); GLUCOSE 98 mg/dL (74-106); MAGNESIUM 1.8 mg/dL (1.8-2.4); PHOSPHOROUS 2.8 mg/dL (2.5-4.9); UREA NITROGEN, BLOOD 54 mg/dL (7-18); VANCOMYCIN,RANDOM 17.2 ug/mL (18.0-26.0)
[2018-07-29] MEDS: LEVETIRACETAM IV 500 MG in IV DEXTROSE 5% 100 ML IV SCH (08:50)
[2018-07-29] MEDS: ASPIRIN 300 MG RECTAL SUPP RC SCH (08:51)
[2018-07-29] MEDS: PANTOPRAZOLE SODIUM 40 MG VIAL IV SCH (08:51)
[2018-07-29] MEDS: HEPARIN SODIUM,PORCINE 5,000 UNITS/ML VIAL SQ SCH (08:52)
[2018-07-29] MEDS ORDERED: VANCOMYCIN IV 1 G in PREMIXED 0 EACH IV ONE (09:00)
[2018-07-29] MEDS: BISACODYL 10 MG SUPP.RECT RC PRN (09:00)
[2018-07-29] MEDS ORDERED: AZTR1VIA4 IV (10:43)
[2018-07-29] MEDS ORDERED: VANC1PLA10 IV (10:43)
[2018-07-29] MEDS: POTASSIUM CHLORIDE 50 ML IV SCH ×2 (11:08→12:27)
--- NOTE | 2018-07-29 11:30 | NUR ---
PICTURE TAKEN FOR DISCHARGE ORDERS AND PLACES IN CHART. REPOSITIONED PATIENT AND WOUND CARE PROVIDED ORDER: HYDROGEL, CLEANSED WITH SOAP AND WATER AND APPLIED MEPILEX. ORAL CARE WAS ALSO DONE WITH THE ADDITION OF SUCTIONING. PATIENT WAS REPOSITIONED EVERY 2 HOURS. PATIENT WAS ALSO CHANGED AND BATHED BY DIPPER OPERATOR. OFF LOADING BILATERAL HEELS WAS IMPLEMENTED. VITAL SIGNS ARE WITHIN NORMAL LIMITS THROUGH OUT CARE AND AFTER CARE.
[2018-07-29 11:45] VITALS: BP 136/64
--- NOTE | 2018-07-29 11:49 | NUR ---
CLINICAL PHARMACY NOTE:VANCOMYCIN DOSING S: To continue vancomycin dosing on 87 y/o female for Sepsis. O: Temp 98.9 BUN 54 SCr 1.6 WBC 12.4 ht 157.4 cm wt 54.4 kg Vancomycin random today at 0600:17.2 Plan Since vanco random level is below 20 mcg/ml, Will give vanco 1gm IVPB x1 today. Will continue to dose by fall-off random level due to decreased renal function. Pharmacist shall check srcr in am & decide when to order next random level for further dosing. Will follow
--- NOTE | 2018-07-29 13:27 | NUR ---
PATIENT HAS BEEN DISCHARGED ORDER BY ADRIENNE MARIE. REPORT WAS GIVEN TO TARIQ MOISE, [facility]. SUMA IS AWARE THAT PATIENT IS LEAVING WITH LEFT UPPER ARM MIDLINE TO CONTINUE ATB TREATMENT, PATIENT IS ON VENTURE MASK ON 5 L WITH DIRECT O2 AND IS TO BE CONVERTED TO CONCENTRATOR AT THE FACILITY. PERSONAL BELONGINGS LIST HAS BEEN DOCUMENTED AND SIGN BY TWO RNS, PATIENT IS UNABLE TO SIGN.
--- NOTE | 2018-07-29 14:38 | NUR ---
PATIENT WAS DISCHARGED AT 1430 AND TRANSFERRED BY AMBULANCE WITH 2 SKEIN YARN DYER HELPER. PATIENT ID BAND WAS REMOVED. PATIENT REPORT WAS GIVEN. URINARY OUTPUT IN CATHETER WAS 150 ML. PATIENT WAS IN STABLE CONDITION AND VITAL SIGNS WERE WITHIN NORMAL LIMITS.
== END 2018-07-29 14:30 | DRG 871 ==
LOC: ER 15:52 → TELE 18:23 → TELE-TD 23:01 → TELE 07-28 16:41
PROVIDERS: ADMIT Hospitalist; ATTEND Hospitalist
PROC: 05H633Z Insertion of Infusion Device into Left Subclavian Vein, Percutaneous Approach (ICD-10-PCS; principal; 2018-07-28)
PROC: B547ZZA Ultrasonography of Left Subclavian Vein, Guidance (ICD-10-PCS; 2018-07-28)
DX: A41.9 Sepsis, unspecified organism (principal); N17.0 Acute kidney failure with tubular necrosis; I21.4 Non-ST elevation (NSTEMI) myocardial infarction; J96.22 Acute and chronic respiratory failure with hypercapnia; I50.33 Acute on chronic diastolic (congestive) heart failure; G93.41 Metabolic encephalopathy; J96.21 Acute and chronic respiratory failure with hypoxia; I13.0 Hypertensive heart and chronic kidney disease with heart failure and stage 1 through stage 4 chronic kidney disease, or unspecified chronic kidney disease; E87.0 Hyperosmolality and hypernatremia; R47.01 Aphasia; J21.9 Acute bronchiolitis, unspecified; J98.11 Atelectasis; T84.028A Dislocation of other internal joint prosthesis, initial encounter; I48.92 Unspecified atrial flutter; E87.2 Acidosis; N39.0 Urinary tract infection, site not specified; N18.9 Chronic kidney disease, unspecified; E78.5 Hyperlipidemia, unspecified; E86.0 Dehydration; E11.22 Type 2 diabetes mellitus with diabetic chronic kidney disease; F03.90 Unspecified dementia, unspecified severity, without behavioral disturbance, psychotic disturbance, mood disturbance, and anxiety; F32.9 Major depressive disorder, single episode, unspecified; G20 Parkinson's disease; G40.909 Epilepsy, unspecified, not intractable, without status epilepticus; I25.2 Old myocardial infarction; I48.91 Unspecified atrial fibrillation; E87.6 Hypokalemia; J45.909 Unspecified asthma, uncomplicated; K21.9 Gastro-esophageal reflux disease without esophagitis; N20.0 Calculus of kidney; Z66 Do not resuscitate; Z88.0 Allergy status to penicillin; Z87.820 Personal history of traumatic brain injury; N28.1 Cyst of kidney, acquired; Y83.8 Other surgical procedures as the cause of abnormal reaction of the patient, or of later complication, without mention of misadventure at the time of the procedure; Y92.129 Unspecified place in nursing home as the place of occurrence of the external cause; Y79.2 Prosthetic and other implants, materials and accessory orthopedic devices associated with adverse incidents; K57.90 Diverticulosis of intestine, part unspecified, without perforation or abscess without bleeding; K56.41 Fecal impaction; B96.20 Unspecified Escherichia coli [E. coli] as the cause of diseases classified elsewhere
CPT/HCPCS: 36415; 36600; 70030-TC; 71045; 73502; 74018; 83605; 83735; 84100; 84156; 84300; 84443; 85025; 85610; 85730; 87040; 87077; 87086; 87400; 93005; 93307; 94640; A4663; C1758; C9113; G0378; J1644; J1815; J1940; J1953; J2270; J3370; J3480; J3490; J3590; J7030; J7050; J7060; J7070